=== PATIENT | female | born 1935 | race Caucasian/White ===

== ENCOUNTER 2017-06-04 14:37 | Inpatient (IN) | payer OTHER ==
[~2017-06-04] VITALS: Ht 165.1 cm; Wt 61.2 kg
--- NOTE | ~2017-06-04 | CATHLAB ---
[facility] [employer] [place] [address] INVASIVE PROCEDURE REPORT Name: JAMES QURESHI Room #: 364-P ADM IN M.R.#: [id number] Admission: 06/04/17 Attend Phys: Robert Duran, Discharge: Date of : 39 Date of Service: 06/05/17 1027 Report #: [id number] THIS REPORT FOR: //name// APPROVED REPORT Patient Details Patient Status: In-Patient Room #: The patient is a 81 year-old female Event Personnel Robert Duran Child Welfare Specialist, Marbin Ho RN, La Nena Church CVT Monitor, Timbo Kauffman Mahmood, Amber Monitor, Deisi Swanson RN concrete 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 A PINNACLE 6FR Sheath #[id number] sheath was inserted into the RFA 6FR^. Coronary angiography was performed using coronary diagnostic catheters. The right coronary system was accessed and visualized with a JR4 catheter. The left coronary system was accessed and visualized with a JL4 catheter. The left ventricle was accessed and visualized with a PIGTAIL catheter. Left ventriculogram was performed in 30 degree projection. Closure device was deployed with a 6 Fr MYNXGRIP 6/7F #[id number]. The patient tolerated the procedure well and there were no complications associated with the procedure. There was no hematoma. Intraoperative Conscious Sedation Sedation start time: 8.28 Case end Time: 8.39 Fentanyl 25.0 mcg Versed 0.7 mg Fluoro Time: 1.30 minutes Dose: DAP 2023.00 cGycm2 242 mGy Contrast Type and Amount: Omnipaque 130 ml Hemodynamics The aortic pressure is 115/55 mmHg with a mean of 82 mmHg. The left ventricular pressure is 116/-11 mmHg with a mean of mmHg. The left ventricular end diastolic pressure is 20 mmHg. [facility] [address] [place] [address] INVASIVE PROCEDURE REPORT Name: JAMES QURESHI Room #: 364-P [facility] IN .R.#: [id number] Admission: 06/04/17 Attend Phys: Robert Duran, Discharge: Date of : 39 Date of Service: 06/05/17 1027 Report #: [id number] Conclusion #1 normal left ventricular size with extensive anterior apical inferior apical near akinesis this is consistent with a Takatsubo event #2 abdominal aorta is mildly ectatic with mild disease involving the renal arteries and iliac system no occlusive disease no aneurysm #3 left main minimal disease giving rise to LAD and circumflex #4 LAD proximal calcification with mild to moderate diffuse disease extends around the apex. No occlusive disease noted diagonal system also patent #5 circumflex OM is nondominant eccentric 40-50% lesion calcified giving rise to a relatively small OM system #6 large dominant right coronary artery with an eccentric 50-60% proximal lesion giving rise to a wide lead patent and large PDA and ANANT system with minimal disease (will follow) Recommendations and plan this is consistent with a high stress event which would precipitated this apical ballooning. She is hemodynamically stable. We'll initiate vasodilating beta yesenia and papa R ventricular. We will observe in the CCU will send troponin. This does not appear to have been a lice clot or a spasm. This is consistent withTakatsubo event. No lifting for 48 hours no line tub Jacuzzi or [place] for a week. Transfer to CCU bed for continued observation. <ELECTRONICALLY SIGNED> By: Robert Duran MD, FACC 06/05/17 1027 1027 1027 Robert Duran MD, FACC /INF
--- NOTE | ~2017-06-04 | H ---
[facility] [place] [address] HISTORY AND PHYSICAL Name: JAMES QURESHI Room #: 364-P ADM IN M.R.#: [id number] Admission: 06/04/17 Attend Phys: Robert Duran MD, Discharge: Date of : 39 Report #: [id number] THIS REPORT FOR: //name// CC: Timbo Duran HISTORY OF PRESENT ILLNESS: A 81-year-old female who does not have documented coronary artery disease, but has multiple risk factors. She was in followup a month or so ago and had noted to have some progressive dyspnea, shortness of breath and some palpitations. She had a stress test that was negative from 2013 with preserved LV function. She subsequently underwent stress echo this morning, had some limited exercise tolerance and then had some subtle ST elevation, which is quite surprising in the lateral leads 1, aVL and V4-V5. This did resolve after approximately 10 minutes, but based on this and her marked dyspnea and shortness of breath, she is admitted for angina suspected CAD, which may possibly progress to some significant lesions. She states she has been feeling fairly well, although she is somewhat of a marginal historian and may be denying to some extent. She is on Arimidex, aspirin, calcium carbonate, levothyroxine, mag ox, Naprosyn p.r.n. and verapamil 180. PAST MEDICAL HISTORY: Positive for hypertension, hypercholesterolemia, hysterectomy, breast lumpectomy, thyroidectomy for thyroid carcinoma, PSVT, ovarian carcinoma. SOCIAL HISTORY: Former tobacco user and occasional alcohol. She is . ALLERGIES: PENICILLIN. REVIEW OF SYSTEMS: Essentially negative except for stated above, progressive dyspnea, shortness of breath and some intermittent constipation. FAMILY HISTORY: Father had coronary artery disease prematurely, from an infarct. PHYSICAL EXAMINATION: GENERAL: She is pleasant, alert. She is in no distress. VITAL SIGNS: Blood pressure 112/70, pulse is 80s. HEENT: Eyes reveal xanthelasmas. Pharynx is clear. NECK: Shows preserved upstrokes without JVD or bruits. LUNGS: Prolonged expiratory phase. CARDIOVASCULAR: Regular rate and rhythm, S1, S2 distant. ABDOMEN: Soft. No HSM or abdominal bruit. EXTREMITIES: Reveal diminished pulses, but intact. NEUROLOGIC: Nonfocal. SKIN: Warm and dry without xanthoma or ulcer. MUSCULOSKELETAL: No gross joint deformity. [facility] [address] [place] [address] HISTORY AND PHYSICAL Name: JAMES QURESHI Room #: 364-P [facility] IN M.R.#: [id number] Admission: 06/04/17 Attend Phys: Robert Duran MD, Discharge: Date of : 39 Report #: [id number] ASSESSMENT: 1. Suspected coronary artery disease with markedly abnormal stress echo with transient ST elevation (recovery). 2. Hypertension. 3. Hypercholesterolemia. 4. Prior tobacco use. 5. History of supraventricular tachycardia. 6. History of ovarian and breast cancer, thyroid cancer. RECOMMENDATIONS AND PLAN: ____ laboratory work. Aspirin and Livalo have been given. We will monitor and proceed to the catheterization lab to delineate her anatomy. Risks, benefits, alternatives were discussed with the patient and her is now present. We will discuss further and we will proceed in the a.m. Thank you for asking me to assist in the care of this patient. <ELECTRONICALLY SIGNED> By: Robert Duran MD, FACC 06/05/17 1231 10 49 Robert Duran MD, FACC /nt
--- NOTE | ~2017-06-04 | 2DMMODE ---
[facility] [address] [place] [address] 2 D/M-MODE ECHOCARDIOGRAM Name: KIERAJAMES BRIGGS Room #: 364-P ADM IN M.R.#: [id number] Admission: 06/04/17 Attend Phys: Robert Duran, Discharge: Date of : 39 Date of Service: 06/06/17 1706 Report #: [id number] THIS REPORT FOR: //name// APPROVED REPORT Study performed: 06/06/2017 11:37:41 EXAM: Limited 2D, Doppler, and color-flow Echocardiogram Patient Location: Bedside Room #: 364 Status: routine BSA: 1.67 BP: 82/48 mmHg Other Information Study Quality: Adequate Indications Elevated Troponin Tachycardia 2D Dimensions LVEF(%): 68.11 (>50%) IVSd: 12.06 (7-11mm) LVDd: 39.12 mm PWd: 10.54 (7-11mm) LVDs: 24.48 (25-40mm) IVC: 16.00 mm Devlin's LVEF: 68.11 % Aortic Valve AoV Peak Kelvin.: 0.82 m/s AO Peak Gr.: 2.68 mmHg LVOT Max P.96 mmHg LVOT Max V: 0.70 m/s Mitral Valve E/A Ratio: 0.8 MV Decel. Time: 181.51 ms MV E Max Kelvin.: 0.58 m/s MV A Kelvin.: 0.74 m/s MV PHT: 52.64 ms Tricuspid Valve TR Peak Kelvin.: 2.77 m/s RAP Estimate: 5.00 mmHg TR Peak Gr.: 30.68 mmHg [facility] [address] [place] [address] 2 D/M-MODE ECHOCARDIOGRAM Name: JAMES QURESHI Room #: 364-P ADM IN ..#: [id number] Admission: 06/04/17 Attend Phys: Robert Duran, Discharge: Date of : 39 Date of Service: 06/06/17 1706 Report #: [id number] Left Ventricle The left ventricle is normal size. Mid to distal septal, anterolateral, and apical hypokinesis. Apical "ballooning" consider Takotsubo cardiomyopathy There is normal left ventricular wall thickness. Left ventricular systolic function is moderately decreased. LVEF is 35-40%. Grade I - abnormal relaxation pattern. Right Ventricle The right ventricle is normal size. The right ventricular systolic function is normal. Atria The left atrium size is normal. The right atrium size is normal. Aortic Valve The aortic valve is mildly sclerotic Mild aortic regurgitation. There is no aortic valvular stenosis. Mitral Valve Mild mitral annular calcification Mild mitral regurgitation. No evidence of mitral valve stenosis. Tricuspid Valve The tricuspid valve is normal in structure. There is mild tricuspid regurgitation. The right atrial pressure is estimated at 5 mmHg. PAP is estimated at 35 mmHg. Pulmonic Valve The pulmonary valve is normal in structure. Great Vessels IVC is normal in size and collapses >50% with inspiration. Pericardium There is no pericardial effusion. <Conclusion> Left ventricular systolic function is moderately decreased. Mid to distal septal, anterolateral, and apical hypokinesis. Apical "ballooning" consider Takotsubo cardiomyopathy LVEF is 35-40%. Grade I diastolic dysfunction The aortic valve is mildly sclerotic. No aortic valvular stenosis, [facility] [place] [address] 2 D/M-MODE ECHOCARDIOGRAM Name: JAMES QURESHI Room #: 364-P [facility] IN M.R.#: [id number] Admission: 06/04/17 Attend Phys: Robert Duran, Discharge: Date of : 39 Date of Service: 06/06/171705 Report #: [id number] mild insufficiency. Mild mitral annular calcification. Mild mitral regurgitation. Pulmonary artery pressure of 35mmHg There is no pericardial effusion. <ELECTRONICALLY SIGNED> By: Darrell Villalba MD, [facility] 06/06/171705 05 Darrell Villalba MD, FACC /INF
--- NOTE | ~2017-06-04 | EKG ---
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 : 1935 Requested By: Robert Duran Order Number: [id number] MD: Darrion Encarnacion Measurements Intervals [place] Rate: 93 P: 65 IL: 207 QRS: 215 QRSD: 96 T: 25 QT: 380 QTc: 473 Interpretive Statements Sinus rhythm Borderline prolonged IL interval Probable left atrial enlargement Abnormal lateral Q waves Anterior infarct, old Baseline wander in lead(s) V2 Compared to ECG 09/17/2003 09:36:01 Q waves now present Poor R-wave progression no longer present Myocardial infarct finding still present Electronically Signed On 06-05-2017 7:14:50 CDT by Darrion Encarnacion [email or web address] <ELECTRONICALLY SIGNED> By: Darrion Encarnacion MD 06/05/17 0714 52 52 Darrion Encarnacion MD /EPI
[~2017-06-04 14:37] MED LIST: ALORA1 EAC1 PO; ASPIR 8181 MG PO; CIPROFLOXACIN500 M1 PO; FLAGYL500 MG PO; HYDROCODONE-AP1 EAC6 PO; LEVOTHYROXIN0.112 M1 PO; MELATONIN3 MG PO; UNICOMPLEX M TA1 TA1 PO; VERAPAMIL ER180 MG PO; ZOFRAN ODT4 M1 PO
[2017-06-04 19:49] VITALS: BP 112/69
[2017-06-04 20:33] LABS: ABSOLUTE NEUTROPHILS 8.6 thou/uL (1.4-8.2); BASOPHILS 0.7 % (0.0-2.0); EOSINOPHILS 2.3 % (0.0-3.0); HEMOGLOBIN 12.8 gm/dL (12.0-15.0); LYMPHOCYTES 14.6 % (24.0-44.0); MCH 27.7 pg (26.0-34.0); MCHC 32.8 g/dL (28.0-37.0); MCV 84.2 fL (80.0-100.0); PLATELET COUNT 212 thou/uL (150-400); POLYS 74.4 % (36.0-66.0); RBC 4.63 mil/uL (4.20-5.00); RDW 14.4 % (10.5-14.5); WBC 11.6 thou/uL (4.0-11.0)
[2017-06-04 20:36] LABS: MANUAL DIFF NO
[2017-06-04 20:44] LABS: CALCIUM 9.2 mg/dL (8.5-10.1); CREATININE 0.8 mg/dL (0.6-1.0); POTASSIUM 4.2 mmol/L (3.5-5.1)
[2017-06-04 23:55] VITALS: BP 128/85
[2017-06-05] VITALS (9 sets, daily range): BP systolic 91–108; BP diastolic 49–63
[2017-06-05 00:53] LABS: APTT 29.1 Seconds (24.5-32.8); PROTIME 10.2 Seconds (9.3-11.4)
[2017-06-06 04:45] VITALS: BP 100/55
[2017-06-06 07:03] LABS: ABSOLUTE NEUTROPHILS 7.3 thou/uL (1.4-8.2); BASOPHILS 0.7 % (0.0-2.0); EOSINOPHILS 0.7 % (0.0-3.0); HEMATOCRIT 36.6 % (37.0-47.0); HEMOGLOBIN 12.1 gm/dL (12.0-15.0); LYMPHOCYTES 17.7 % (24.0-44.0); MCH 28.1 pg (26.0-34.0); MCHC 33.1 g/dL (28.0-37.0); MCV 84.9 fL (80.0-100.0); MONOCYTES 9.4 % (1.0-8.0); PLATELET COUNT 172 thou/uL (150-400); POLYS 71.5 % (36.0-66.0); RBC 4.31 mil/uL (4.20-5.00); RDW 14.6 % (10.5-14.5); WBC 10.3 thou/uL (4.0-11.0)
[2017-06-06 07:05] LABS: MANUAL DIFF NO
[2017-06-06 07:18] LABS: CALCIUM 8.5 mg/dL (8.5-10.1); CREATININE 0.8 mg/dL (0.6-1.0); POTASSIUM 3.9 mmol/L (3.5-5.1)
[2017-06-06 08:17] VITALS: BP 82/48
[2017-06-06] MEDS ORDERED: CARVEDILOL3.125 MG PO (09:27)
[2017-06-06] MEDS ORDERED: ATORVASTATIN CA10 MG PO (09:27)
[2017-06-06] MEDS ORDERED: COZAAR 25 MG TA25 M1 PO (09:27)
[2017-06-06 14:39] VITALS: BP 82/48
[2017-06-06 17:36] VITALS: BP 119/57
[2017-06-06 20:40] VITALS: BP 101/55
[2017-06-07 05:00] VITALS: BP 103/53
[2017-06-07 07:16] VITALS: BP 98/53
[2017-06-07 11:05] VITALS: BP 101/47
[2017-06-07 11:24] LABS: HEMATOCRIT 35.6 % (37.0-47.0); HEMOGLOBIN 11.7 gm/dL (12.0-15.0); MCH 27.8 pg (26.0-34.0); MCHC 32.8 g/dL (28.0-37.0); MCV 84.9 fL (80.0-100.0); RBC 4.2 mil/uL (4.20-5.00); RDW 14.6 % (10.5-14.5); WBC 9.3 thou/uL (4.0-11.0)
[2017-06-07 11:36] LABS: CALCIUM 8.4 mg/dL (8.5-10.1); CREATININE 0.9 mg/dL (0.6-1.0); POTASSIUM 3.9 mmol/L (3.5-5.1)
[2017-06-07 15:23] VITALS: BP 105/50
[2017-06-07 20:30] VITALS: BP 109/47
[2017-06-08 04:40] VITALS: BP 106/53
[2017-06-08 08:15] VITALS: BP 121/60
[2017-06-08] MEDS ORDERED: PACERONE 200 M200 M1 PO (08:48)
[2017-06-08] MEDS ORDERED: DIGOXIN125 MCG PO (08:48)
[2017-06-08] MEDS ORDERED: ELIQUIS5 MG PO (08:48)
== END 2017-06-08 10:34 | disposition home or self-care (01) | DRG 287 ==
LOC: 3W 14:37 → ENTRNSPT 06-08 10:13 → 3W 06-08 10:34
PROVIDERS: Internal Medicine; Internal Medicine Cardiovascular Disease; Nurse Practitioner Adult Health
PROC: 4A023N7 Measurement of Cardiac Sampling and Pressure, Left Heart, Percutaneous Approach (ICD-10-PCS; principal; 2017-06-05)
PROC: B2111ZZ Fluoroscopy of Multiple Coronary Arteries using Low Osmolar Contrast (ICD-10-PCS; 2017-06-05)
PROC: B2151ZZ Fluoroscopy of Left Heart using Low Osmolar Contrast (ICD-10-PCS; 2017-06-05)
PROC: B3101ZZ Fluoroscopy of Thoracic Aorta using Low Osmolar Contrast (ICD-10-PCS; 2017-06-05)
DX: I51.81 Takotsubo syndrome (principal); I25.3 Aneurysm of heart; I10 Essential (primary) hypertension; I25.10 Atherosclerotic heart disease of native coronary artery without angina pectoris; N28.9 Disorder of kidney and ureter, unspecified; I48.0 Paroxysmal atrial fibrillation; E78.00 Pure hypercholesterolemia, unspecified; Z90.710 Acquired absence of both cervix and uterus; Z85.43 Personal history of malignant neoplasm of ovary; Z85.850 Personal history of malignant neoplasm of thyroid; Z82.49 Family history of ischemic heart disease and other diseases of the circulatory system; Z88.0 Allergy status to penicillin; Z87.891 Personal history of nicotine dependence; Z85.3 Personal history of malignant neoplasm of breast; Z23 Encounter for immunization
CPT/HCPCS: 10779

== ENCOUNTER 2018-08-09 12:04 | Emergency (ER) | payer OTHER ==
[~2018-08-09] VITALS: Ht 162.6 cm; Wt 64.4 kg
[~2018-08-09 12:04] MED LIST changes: +ATORVASTATIN CA10 MG PO; +CARVEDILOL3.125 MG PO; +COZAAR 25 MG TA25 M1 PO; +DIGOXIN125 MCG PO; +ELIQUIS5 MG PO; +PACERONE 200 M200 M1 PO
[2018-08-09] MEDS ORDERED: ANASTROZOLE1 MG PO (12:22)
[2018-08-09] MEDS ORDERED: ULTRAM 50MG TAB50 MG PO (12:52)
[2018-08-09 13:12] VITALS: BP 136/40
== END 2018-08-09 13:10 | disposition home or self-care (01) ==
LOC: ER 12:04
DX: S92.411A Displaced fracture of proximal phalanx of right great toe, initial encounter for closed fracture (principal); Z88.0 Allergy status to penicillin; Z90.89 Acquired absence of other organs; Z85.43 Personal history of malignant neoplasm of ovary; W10.9XXA Fall (on) (from) unspecified stairs and steps, initial encounter; Y92.89 Other specified places as the place of occurrence of the external cause; Y93.89 Activity, other specified; Y99.8 Other external cause status

== ENCOUNTER → 2019-12-24 | Outpatient (CLI) | payer OTHER ==
[~2019-12-24] MED LIST changes: +ANASTROZOLE1 MG PO; +ULTRAM 50MG TAB50 MG PO
== END ==
LOC: SJCVC 16:20
DX: I44.7 Left bundle-branch block, unspecified (principal); R94.31 Abnormal electrocardiogram [ECG] [EKG]; I48.0 Paroxysmal atrial fibrillation; I25.10 Atherosclerotic heart disease of native coronary artery without angina pectoris; I51.81 Takotsubo syndrome; I10 Essential (primary) hypertension; E78.00 Pure hypercholesterolemia, unspecified; E03.9 Hypothyroidism, unspecified; Z79.899 Other long term (current) drug therapy; Z82.49 Family history of ischemic heart disease and other diseases of the circulatory system; Z87.891 Personal history of nicotine dependence

== ENCOUNTER → 2020-08-31 | Outpatient (CLI) | payer OTHER | LOC: SJCVCIMAG 12:53 | PROVIDERS: ATTEND Internal Medicine Cardiovascular Disease | DX: I08.0 Rheumatic disorders of both mitral and aortic valves (principal); R94.31 Abnormal electrocardiogram [ECG] [EKG]; I49.3 Ventricular premature depolarization; I25.10 Atherosclerotic heart disease of native coronary artery without angina pectoris; I48.0 Paroxysmal atrial fibrillation; D68.59 Other primary thrombophilia; E78.00 Pure hypercholesterolemia, unspecified; I10 Essential (primary) hypertension; E03.9 Hypothyroidism, unspecified; Z90.710 Acquired absence of both cervix and uterus; Z90.49 Acquired absence of other specified parts of digestive tract; Z98.890 Other specified postprocedural states; Z79.899 Other long term (current) drug therapy; Z87.891 Personal history of nicotine dependence; Z82.49 Family history of ischemic heart disease and other diseases of the circulatory system ==

== ENCOUNTER → 2021-03-15 | Outpatient (CLI) | payer OTHER | LOC: SJCVC 13:13 | PROVIDERS: ATTEND Internal Medicine Cardiovascular Disease | DX: R94.31 Abnormal electrocardiogram [ECG] [EKG] (principal); I49.1 Atrial premature depolarization; I51.81 Takotsubo syndrome; I48.0 Paroxysmal atrial fibrillation; D68.59 Other primary thrombophilia; E78.00 Pure hypercholesterolemia, unspecified; I10 Essential (primary) hypertension; I25.10 Atherosclerotic heart disease of native coronary artery without angina pectoris; E03.9 Hypothyroidism, unspecified; Z90.49 Acquired absence of other specified parts of digestive tract; Z90.710 Acquired absence of both cervix and uterus; Z88.8 Allergy status to other drugs, medicaments and biological substances; Z88.0 Allergy status to penicillin; Z79.899 Other long term (current) drug therapy; Z87.891 Personal history of nicotine dependence; Z82.49 Family history of ischemic heart disease and other diseases of the circulatory system ==